=== PATIENT | female | born 1980 | race Caucasian/White ===

== ENCOUNTER 2017-03-12 13:56 | Emergency (ER) | payer MEDICARE, MEDICAID ==
[~2017-03-12] VITALS: Ht 182.9 cm; Wt 83.9 kg
--- NOTE | 2017-03-12 14:14 | NUR ---
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 RR is even and unlabored with nad noted. skin is warm and non diaphoretic. Dr Eason at BS for eval.
--- NOTE | 2017-03-12 15:00 | NUR ---
urine obtained sent to the lab.
[2017-03-12 15:05] LABS: APPEARANCE,URINE Clear (CLEAR); BILIRUBIN,URINE Negative (NEGATIVE); BLOOD, URINE Moderate Ery/uL (NEGATIVE); COLOR,URINE Yellow (YELLOW); KETONES,URINE Negative (NEGATIVE); LEUKOCYTE ESTERASE ,URINE Negative (NEGATIVE); NITRITE, URINE Negative (NEGATIVE); PH,URINE 5.5 (5.0-8.0); PROTEIN,URINE Negative (NEGATIVE); UGLUCOSE Negative (NEGATIVE); UROBILINOGEN,URINE 0.2 EU/dL (0.2)
[2017-03-12 15:09] LABS: PREGNANCY TEST URINE QUAL NEGATIVE (NEGATIVE)
[2017-03-12 15:38] LABS: ADD URINE CULTURE NO; BACTERIA,URINE Rare /HPF (None Seen); WBC,URINE 0-2 /HPF (0-3)
[2017-03-12 15:39] LABS: SQUAMOUS EPITHELIAL CELL,UR Rare /HPF (None Seen)
--- NOTE | 2017-03-12 15:55 | NUR ---
Huma, Registered Nurse Behavioral Health at talking to the family.
--- NOTE | 2017-03-12 16:20 | NUR ---
Patient is resting comfortably in bed . VSS
--- NOTE | 2017-03-12 17:40 | NUR ---
STEVIE received a call from Leti in ED requesting assistance in placing pt. in another Board [facility] since pt. was let go from her previous placement in [place]. STEVIE met with pt. and pt.'s mother Ying and her friend chandler. Ying informed STEVIE that pt. resided at a [facility] in [place] and they went to roller picker pt. for lunch. However, when they arrived at the facility, the [facility] medical registrar Keara had pt's belongings packed and informed them she is no longer going to be able to reside here. Pt. is not able to live with her mother due to her mother not having the means to care for pt. STEVIE with assistance from case finishing machine adjuster Blu was able to find a board and care for pt. to go to. Pt. will be accompanied from the ED to the board and care by her mother and friend. Pt. is going to [facility] locate at [address] [place] [address]. [place] [id number], Taping Foreman is Melissa, contact #[phone]. STEVIE gave the address to the B[facility] to pt's mother Ying. Dr. Eason and Leti were notified of discharge plan.
--- NOTE | 2017-03-12 17:46 | NUR ---
Patient discharged to home in stable condition. Written and verbal after care instructions given. Patient verbalizes understanding of instruction. Patient was advised by social services technician to go to [facility]. Family was provided info/resources by SW. Huma
[2017-03-12 17:48] VITALS: BP 118/89
== END 2017-03-12 17:49 | disposition home or self-care (01) ==
LOC: ER 14:02
DX: R10.9 Unspecified abdominal pain (principal); F32.9 Major depressive disorder, single episode, unspecified; E11.9 Type 2 diabetes mellitus without complications; G40.909 Epilepsy, unspecified, not intractable, without status epilepticus; Z87.820 Personal history of traumatic brain injury; Z86.718 Personal history of other venous thrombosis and embolism; Z86.711 Personal history of pulmonary embolism
CPT/HCPCS: 81000-TC; 84703-TC; A4606; Z7610